=== PATIENT | male | born 1970 ===

== ENCOUNTER → 2022-01-16 10:47 | Outpatient (BNVA) | payer SELFPAY | PROVIDERS: Visit Provider Orthopaedic Surgery | DX: S49.91XA Unspecified injury of right shoulder and upper arm, initial encounter (principal); X58.XXXA Exposure to other specified factors, initial encounter; M19.011 Primary osteoarthritis, right shoulder | CPT/HCPCS: 73030 ==

== ENCOUNTER → 2023-08-11 09:40 | Outpatient (BNVA) | payer BC, MEDICAID, SELFPAY | PROVIDERS: PCP Nurse Practitioner Family; Visit Provider Nurse Practitioner Family | DX: I10 Essential (primary) hypertension (principal); F43.10 Post-traumatic stress disorder, unspecified; F41.1 Generalized anxiety disorder | CPT/HCPCS: 80053; 80061; 83721; 85025 ==

== ENCOUNTER → 2025-02-02 08:49 | Outpatient (BNVA) | payer BC, SELFPAY | PROVIDERS: PCP Nurse Practitioner Family; Visit Provider Nurse Practitioner Family | DX: L40.0 Psoriasis vulgaris (principal); L30.0 Nummular dermatitis; Z12.5 Encounter for screening for malignant neoplasm of prostate; E55.9 Vitamin D deficiency, unspecified | CPT/HCPCS: 80053; 80061; 81003; 82306; 83036; 84439; 84443; 85025; 85651; 86038; 86140; G0103 ==

== ENCOUNTER → 2025-02-16 09:21 | Outpatient (BNVA) | payer BC, SELFPAY | PROVIDERS: PCP Nurse Practitioner Family; Visit Provider Nurse Practitioner Family | DX: R53.83 Other fatigue (principal); R79.89 Other specified abnormal findings of blood chemistry | CPT/HCPCS: 83516; 84402; 84403; 86376 ==